=== PATIENT | female | born 1970 | race Caucasian/White ===

== ENCOUNTER 2016-10-14 22:55 | Emergency (ER) | payer BC, OTHER ==
[2016-10-14 23:04] VITALS: BP 99/75; BMI 25.5
[2016-10-15] MEDS ORDERED: DEMEROL INJ IM ONE (00:31)
[2016-10-15] MEDS ORDERED: PHENERGAN INJ 25 MG IM ONE (00:32)
[2016-10-15] MEDS ORDERED: PHENERGAN INJ 25 MG ONE (00:36)
[2016-10-15] MEDS ORDERED: DEMEROL INJ ONE (00:36)
--- NOTE | 2016-10-15 00:42 | DR.GENAD ---
HPI - PCP Primary Care Physician: angie moran - HPI Comment HPI Comment: PATIENT HAVE HISTORY OF MIGRAINE HEADACHE AND IS UNDER THE CARE OF NEUROLOGISTS. CURRENT MEDICATION WORK FOR PATIENT FOR SEVERAL MONTHS. SINCE 03: 00AM TODAY, HEADACHE WITH NAUSEA HAVE PERSISTED. VOMITED FEW TIMES. CURRENTLY CONGESTED, COUGHING AND HAVING POST NASAL DRIP. NO FEVER. - Complaint/Symptoms Chief Complaint Doctors Comments: HEADACHE TIMES SEVERAL HOURS. Chief Complaint:: migraine since 3 am this morning. been coughin for 3 days. allergies are aggravating headache as well. Self Treatment fo Chief Complaint: phenergan 6 pm, fioricet 4 pm, topamate this morning - Nurses notes reviewed Nurses Notes Review: Yes - Source History Provided: Patient - Mode of Arrival Mode of Arrival: Ambulatory - Timing Onset of Chief Complaint: 10/14/16 Came on: Suddenly - Duration Duration: Constant Duration: Hours - Severity Severity: Moderate PMH - PMH Past Medical History: Yes Past Medical History: Migraines, Hypertension Past Medical History Comment: hyperlipidemia Past Surgical History: Yes Surgical History: Hysterectomy Past Surgical History Comment: mesh implate, two cysts removed before hysterectomy - Family History History of Family Medical Conditions: Yes Family Medical History: Diabetes Mellitus, [place], Hypertension - Social History Does patient currently use any type of tobacco product: Yes Have you used tobacco products in the last 12 months: Yes Type of Tobacco Use: Cigarettes Does any household member use tobacco: No Alcohol Use: None Do you use any recreational Drugs:: No Lives With: Family Lives Where: Home - infectious screening In the last 2 months have you had wt loss of >10#?: NO Have you had fever, night sweats or hemotysis?: No Have you traveled outside the country in the last 6 months?: No Isolation: Standard ROS - Review of Systems Constitutional: No Symptoms Reported. negative: Chills, Fever Eyes: Photophobia. negative: Eye Pain, Discharge ENTM: Nose Discharge, Nose Congestion. negative: Ear Pain, Throat Pain Respiratoy: Productive Cough. negative: Short of Breath, Wheezing, Hemoptysis Cardiovascular: No Symptoms Reported Gastrointestinal/Abdominal: Nausea, Vomiting Genitourinary: No Symptoms Reported Neurological: Headache Musculoskeletal: No Symptoms Reported Integumentary: No Symptoms Reported Hematologic/Lymphatic: No Symptoms Reported Endocrine: No Symptoms Reported All Other Systems: Reviewed and Negative PE - Vital Signs Vitals: Temperature 96.9 F Pulse Rate 75 Respiratory Rate 20 Blood Pressure 99/75 O2 Sat by Pulse Oximetry 100 - General Limitations: No Limitations General Appearance: Alert - Head Head Exam: Normal Inspection - Eyes Eye exam: Normal Appearance - ENT ENT Exam: Normal External Ear Exam External Ear Exam: Normal External Inspection TM/Canal Exam: Bilateral Normal Nose Exam: Normal Nose Exam Mouth Exam: Normal Inspection Throat Exam: Normal Inspection - Neck Neck Exam: Trachea Midline - Chest Chest Inspection: Symmetric Chest Wall Rise - Respiratory Respiratory Exam: Normal Lung Sounds Bilat Respiratory Exam: Bilateral Clear to Auscultation - Cardiovascular Cardiovascular Exam: Regular Rate, Normal Rhythm, Normal Heart Sounds - Abdominal Exam Abdominal Exam: Normal Bowel Sounds, Soft. negative: Tenderness - Extremities Extremities Exam: Normal Inspection - Back Back Exam: Normal Inspection - Neurologic Neurological Exam: Alert, Oriented X3, CN II-XII Intact. negative: Motor Sensory Deficit - Psychiatric Psychiatric Exam: Normal Affect, Normal Mood - Skin Skin Exam: Normal Color MDM - Additional Information Additional Information Obtained From: Family - Differential Diagnosis Differential Diagnosis: MIGRAINE HEADACHE, SINUSITIS, BRONCHITIS Course - Treatment Treatment: IM PAIN MED, HEADACHE IMPROVED. - Education/Counseling Education/Counseling: Patient, Family, Education Educated On: Treatment, Diagnosis, Needs for Follow Up - Diagnosis Discharge Problem: Migraine Qualifiers: Migraine type: without aura Status migrainosus presence: without status migrainosus Intractability: intractable Qualified Code(s): G43.019 - Migraine without aura, intractable, without status migrainosus Sinusitis Qualifiers: Sinusitis location: unspecified location Chronicity: acute Recurrence: non- recurrent Qualified Code(s): J01.90 - Acute sinusitis, unspecified - Discharge Plan Disposition: HOME, SELF-CARE Condition: Stable Prescriptions: Amoxicillin [Amoxil 875 mg] 875 mg PO BID #20 tab Cetirizine HCl [Zyrtec Tab 10 mg] 10 mg PO DAILY #10 tab - Follow ups/Referrals Follow ups/Referrals: ANGIE MORAN [Primary Care Provider] - 3 days - Instructions Instructions: Migraine Headache, Sinusitis, Adult, [id number] Additional Instructions: RETURN TO ED IF WORSE,
[2016-10-15] MEDS ORDERED: AMOXIL CAP 500 MG PO ONE ×2 (00:45→00:50)
== END 2016-10-15 00:57 | disposition home or self-care (01) ==
LOC: ER 22:55
DX: G43.019 Migraine without aura, intractable, without status migrainosus (principal); J01.80 Other acute sinusitis
CPT/HCPCS: 96372; 99282; J2175; J2550

== ENCOUNTER 2017-01-15 07:59 | Emergency (ER) | payer OTHER ==
[2017-01-15 08:06] VITALS: BP 106/74; BMI 25.1
--- NOTE | 2017-01-15 08:42 | DR.HEADACH ---
HPI - Time Seen Time seen: 08:37 - Primary Care Physician Primary Care Physician: ANGIE MORAN - HPI Comment HPI Comment: Patient admits to migraine headache for two days. She admits to being sleep deprived and sleep deprivation brings on her headaches. She takes maxault and fioricet. - Complaint/Symptoms Chief Complaint:: MIGRAINE Self Treatment fo Chief Complaint: FIORECET - Source History Provided: Patient - Mode of Arrival Mode of Arrival: Ambulatory - Timing Onset of Chief Complaint: 01/14/17 PMH - PMH Past Medical History: Yes Past Medical History: Dyslipidemia, Migraines, Hypertension Past Surgical History: Yes Surgical History: Hysterectomy - Family History History of Family Medical Conditions: Yes Family Medical History: Diabetes Mellitus, Cancer, [place], Hypertension - Social History Does patient currently use any type of tobacco product: Yes Have you used tobacco products in the last 12 months: Yes Type of Tobacco Use: Cigarettes How many years tobacco product used: 20 Does any household member use tobacco: No Alcohol Use: None Do you use any recreational Drugs:: Yes Lives With: Family Lives Where: Home - infectious screening In the last 2 months have you had wt loss of >10#?: NO Have you had fever, night sweats or hemotysis?: No Have you traveled outside the country in the last 6 months?: No Isolation: Standard ROS - Review of Systems Constitutional: No Symptoms Reported Eyes: No Symptoms Reported ENTM: No Symptoms Reported Respiratoy: No Symptoms Reported Cardiovascular: No Symptoms Reported Gastrointestinal/Abdominal: No Symptoms Reported Genitourinary: No Symptoms Reported Neurological: Headache (migrain) Musculoskeletal: No Symptoms Reported Integumentary: No Symptoms Reported Hematologic/Lymphatic: No Symptoms Reported Endocrine: No Symptoms Reported Psychiatric: No Symptoms Reported All Other Systems: Reviewed and Negative PE - Vital Signs Vitals: Temperature 97.9 F Pulse Rate 70 Respiratory Rate 16 Blood Pressure 106/74 O2 Sat by Pulse Oximetry 99 - General Limitations: No Limitations General Appearance: Alert, In No Apparent Distress - Head Head Exam: Normal Inspection, Atraumatic - Eyes Eye exam: Normal Appearance, PERRL, EOMI Eyelids: Normal Inspection: Bilateral Pupils: Regular, Round: Bilateral Sclera/Conjunctival: Normal Inspection: Bilateral - ENT ENT Exam: Normal Exam External Ear Exam: Normal External Inspection TM/Canal Exam: Bilateral Normal Nose Exam: Normal Nose Exam Mouth Exam: Normal Inspection - Neck Neck Exam: Normal Inspection - Chest Chest Inspection: Normal Inspection - Respiratory Respiratory Exam: Normal Lung Sounds Bilat Respiratory Exam: Bilateral Clear to Auscultation - Cardiovascular Cardiovascular Exam: Regular Rate, Normal Rhythm - Abdominal Exam Abdominal Exam: Normal Inspection Abdominal Tenderness: negative: RUQ, RLQ, LUQ, LLQ, Epigastrium, Suprapubic, Diffuse, Mild, Moderate, Severe, Other - Extremities Extremities Exam: Normal Inspection, Full ROM - Back Back Exam: Normal Inspection, Full ROM - Neurologic Neurological Exam: Alert, Oriented X3, CN II-XII Intact - Psychiatric Psychiatric Exam: Normal Affect - Skin Skin Exam: Warm, Dry, Intact Course - Treatment Treatment: NS,Promethazine,Demerol - Reevaluation 1st: Improved - Diagnosis Discharge Problem: Migraine Qualifiers: Migraine type: without aura Status migrainosus presence: without status migrainosus Intractability: not intractable Qualified Code(s): G43.009 - Migraine without aura, not intractable, without status migrainosus - Discharge Plan Condition: Stable - Follow ups/Referrals Follow ups/Referrals: ANGIE MORAN [Primary Care Provider] - 3 days - Instructions
[2017-01-15] MEDS ORDERED: DEMEROL INJ IVP ONE (08:47)
[2017-01-15] MEDS ORDERED: NS 500 ML IV 500 ML IV ONE (08:47)
[2017-01-15] MEDS ORDERED: PHENERGAN INJ 25 MG IV ONE (08:47)
[2017-01-15] MEDS ORDERED: DECADRON INJ IM ONE (08:47)
[2017-01-15] MEDS ORDERED: DECADRON INJ ONE (09:00)
[2017-01-15] MEDS ORDERED: NS 1000 ML 1,000 ML ONE (09:00)
[2017-01-15] MEDS ORDERED: PHENERGAN INJ 25 MG ONE (09:00)
[2017-01-15] MEDS ORDERED: DEMEROL INJ ONE (09:01)
== END 2017-01-15 10:31 | disposition home or self-care (01) ==
LOC: ER 08:18
DX: G43.009 Migraine without aura, not intractable, without status migrainosus (principal)
CPT/HCPCS: 96365; 96374; 96375; 99283; A4222; J1100; J2175; J2550

== ENCOUNTER 2017-10-31 04:57 | Emergency (ER) | payer BC, OTHER ==
[2017-10-31 05:08] VITALS: BP 109/64; BMI 23.3
[2017-10-31] MEDS ORDERED: DECADRON JET NEB (RESP USE) NEB ONE ×2 (06:22→06:38)
--- NOTE | 2017-10-31 06:26 | DR.GENAD ---
HPI - PCP Primary Care Physician: DEAN - Complaint/Symptoms Chief Complaint:: "I HAVE PNEUMONIA, FOR 2 WKS NOW, AND I HAVE BEEN TREATED. I AM JUST NOT GETTING ANY BETTER." - Source History Provided: Patient - Mode of Arrival Mode of Arrival: Ambulatory - Timing Onset of Chief Complaint: 10/17/17 PMH - PMH Past Medical History: Yes Past Medical History: Dyslipidemia, Migraines, Hypertension Past Surgical History: Yes Surgical History: Hysterectomy - Family History History of Family Medical Conditions: Yes Family Medical History: Diabetes Mellitus, Cancer, [place], Hypertension - Social History Type of Tobacco Use: Cigarettes Do you use any recreational Drugs:: Yes Lives With: Spouse, Family Lives Where: Home - infectious screening Have you traveled outside the country in the last 6 months?: No Isolation: Standard PE - Vital Signs Vitals: Temperature 97.0 F Pulse Rate 77 Respiratory Rate 16 Blood Pressure 109/64 O2 Sat by Pulse Oximetry 97 - Discharge Plan Condition: Stable - Follow ups/Referrals Follow ups/Referrals: ANGIE MORAN [Primary Care Provider] - 3 days - Instructions
[2017-10-31] MEDS ORDERED: K-LYTE EFFERVESCENT ONE (06:27)
[2017-10-31] MEDS ORDERED: DUONEB 0.5 MG/3 MG NEB SCH (06:30)
[2017-10-31] MEDS ORDERED: DUONEB 0.5 MG/3 MG ONE (06:37)
[2017-10-31 06:54] LABS: BASOPHILS % (AUTO) 0.7 % (0.2-1.0); HEMATOCRIT 39.2 % (36.0-47.0); HEMOGLOBIN 13.5 g/dL (12.0-16.0); LYMPHOCYTES # (AUTO) 1.7 X10^3/uL (1.3-2.9); LYMPHOCYTES % (AUTO) 24.9 % (21.0-51.0); MEAN CORPUSCULAR HEMOGLOBIN 34.8 pg (27.0-34.0); MEAN CORPUSCULAR HGB CONC 34.4 g/dL (33.0-35.0); MEAN CORPUSCULAR VOLUME 101.2 fL (80.0-100.0); MEAN PLATELET VOLUME 8.1 fL (7.4-11.0); MONOCYTES # (AUTO) 0.2 x10^3/uL (0.3-0.8); MONOCYTES % (AUTO) 3.2 % (0.0-13.0); NEUTROPHILS # (AUTO) 4.9 x10^3/uL (2.2-4.8); NEUTROPHILS % (AUTO) 71.2 % (42.0-75.0); PLATELET COUNT 355 X10^3/uL (150.0-450.0); RED BLOOD COUNT 3.88 X10^6/uL (3.5-5.4); RED CELL DISTRIBUTION WIDTH 15.1 % (11.6-16.5); WHITE BLOOD COUNT 6.9 X10^3/uL (3.6-10.0)
[2017-10-31 07:02] LABS: BLOOD UREA NITROGEN 24 mg/dL (7-18); CALCIUM 9.3 mg/dL (8.5-10.1); CARBON DIOXIDE 23.2 mmol/L (21-32); CHLORIDE 107 mmol/L (98-107); COR NA(FOR HYPERGLY) 143 mmol/L (136-145); CREATININE 1.11 mg/dL (0.55-1.02); SODIUM 142 mmol/L (136-145); eGFR BLACK RACES > 60 (>60); eGFR NON BLACK RACES 56 (>60)
--- NOTE | 2017-10-31 07:15 | RAD ---
HISTORY: Cough congestion Study: Chest PA and lateral Comparison: None Findings: The heart is within normal limits in size. The gracia are normal. The lungs are well inflated and free of acute alveolar infiltrates. No pleural effusions are identified. The bony thorax is unremarkable. IMPRESSION: No significant abnormality identified Reported By:
[2017-10-31] MEDS ORDERED: TORADOL 60 MG VIAL IM ONE (08:27)
[2017-10-31] MEDS ORDERED: TORADOL 60 MG VIAL ONE (08:28)
== END 2017-10-31 08:34 | disposition home or self-care (01) ==
LOC: ER 04:57
DX: J98.01 Acute bronchospasm (principal)
CPT/HCPCS: 36415; 71046; 80048; 85025; 86140; 94640; 96372; 99282; A4222; J1885; J7620